=== PATIENT | male | born 1975 | race Caucasian/White ===

== ENCOUNTER 2017-03-07 09:50 | Emergency (ER) | payer OTHER ==
[2017-03-07 11:32] LABS: ALBUMIN 4.9 g/dL (3.5-5.0); BILIRUBIN - TOTAL 0.8 mg/dL (0.1-1.0); GLOBULIN (CALCULATION) 3.4 g/dL (2.2-4.2); POTASSIUM 3.9 mmol/L (3.5-5.1); TOTAL PROTEIN 8.3 g/dL (6.4-8.3)
[2017-03-07 11:39] LABS: BASOPHIL 0.2 % (0-2); EOSINOPHIL 1.4 % (0-5); HCT 51.3 % (42.0-52.0); HGB 18.5 g/dl (13.2-18.0); LYMPHOCYTE 17.1 % (15-48); MCH 30.7 pg (25.0-31.0); MCHC 36.1 g/dL (32.0-36.0); MCV 85.1 fL (78.0-100.0); MONOCYTE 8.3 % (0-12); MPV 10.7 fL (6.0-9.5); PLT 350 K/uL (150-400); RBC 6.03 M/uL (4.70-6.00); RDW 13.8 % (11.5-14.0); WBC 17.3 K/uL (4.0-10.5)
== END 2017-03-07 14:46 | disposition home or self-care (01) ==
LOC: FER 09:50
PROVIDERS: Emergency Medicine
DX: K04.7 Periapical abscess without sinus (principal); L03.211 Cellulitis of face; F17.200 Nicotine dependence, unspecified, uncomplicated
CPT/HCPCS: 36415; 70487; 80053; 85025; J2270; J2543; Q9962